=== PATIENT | female | born 2000 | race Caucasian/White ===

== ENCOUNTER 2022-03-07 04:45 | Emergency (ER) | payer OTHER ==
[~2022-03-07] VITALS: Ht 154.9 cm; Wt 59.9 kg
[2022-03-07 05:20] VITALS: BP 120/73
--- NOTE | 2022-03-07 05:23 | NUR ---
TO LOBBY A/W BED AMBULATORY
[2022-03-07] MEDS ORDERED: ALBU0.0912 INH (07:02)
[2022-03-07] MEDS ORDERED: ROB PO (07:02)
[2022-03-07] MEDS ORDERED: SUD30 PO (07:02)
[2022-03-07] MEDS ORDERED: IBUP-2213 PO (07:03)
[2022-03-07 07:16] VITALS: BP 120/73
--- NOTE | 2022-03-07 07:16 | NUR ---
Patient discharged with v/s stable. Written and verbal after care instructions given and explained. Patient alert, oriented and verbalized understanding of instructions. Ambulatory with steady gait. All questions addressed prior to discharge. ID band removed. Patient advised to follow up with PMD. Rx of robitussin, sudafed, albuterol, and ibuprofen given. Patient educated on indication of medication including possible reaction and side effects. Opportunity to ask questions provided and answered.
== END 2022-03-07 07:16 | disposition home or self-care (01) ==
LOC: MED 04:45
DX: J20.8 Acute bronchitis due to other specified organisms (principal); Z20.822 Contact with and (suspected) exposure to COVID-19; Z79.899 Other long term (current) drug therapy
CPT/HCPCS: 71045; 99284